=== PATIENT | female | born 1975 | race Caucasian/White ===

== ENCOUNTER 2018-04-26 10:00 | Inpatient (IN) | payer OTHER ==
[~2018-04-26] VITALS: Ht 157.5 cm; Wt 72.1 kg
[2018-05-12] MEDS ORDERED: PRENATAL 19 TA1 EACH PO (09:36)
== END 2018-05-16 10:53 | disposition home or self-care (01) | DRG 785 ==
LOC: EDSTATUS 10:00 → ADM 10:00 → LDR 05-12 06:31 → O/R 05-12 18:58 → OB/GYN 05-12 19:54
PROVIDERS: ADMIT Obstetrics & Gynecology
PROC: 0UB70ZZ Excision of Bilateral Fallopian Tubes, Open Approach (ICD-10-PCS; 2018-05-12)
PROC: 4A1HXCZ Monitoring of Products of Conception, Cardiac Rate, External Approach (ICD-10-PCS; 2018-05-12)
PROC: 4A033R1 Measurement of Arterial Saturation, Peripheral, Percutaneous Approach (ICD-10-PCS; 2018-05-12)
PROC: 10D00Z1 Extraction of Products of Conception, Low, Open Approach (ICD-10-PCS; principal; 2018-05-12 15:30)
DX: O33.8 Maternal care for disproportion of other origin (principal); Z3A.39 39 weeks gestation of pregnancy; Z37.0 Single live birth; Z30.2 Encounter for sterilization